=== PATIENT | male | born 1940 | race Caucasian/White ===

== ENCOUNTER → 2017-05-03 | Outpatient (CLI) | payer OTHER ==
[~2017-05-03] MED LIST: ASPEC81 PO; GARLIQUE; MULT-506 PO; OMEG10007 PO; TNRUNK; ZCRUNK; [UNRECOGNIZED DRUG - OTHER]; [UNRECOGNIZED DRUG - OTHER]
[2017-05-03 16:15] LABS: HEMATOCRIT 46.8 % (42-52); MEAN CELL VOLUME 97.3 fL (80-100); MEAN CORPUSCULAR HEMOGLOBIN 33.3 pg (25-34); MEAN CORPUSCULAR HGB CONC 34.2 g/dl (32-36); MEAN PLATELET VOLUME 12.3 fL (7.4-10.4); PLATELET COUNT 201 K/uL (130-400); RED BLOOD COUNT 4.81 M/uL (4.7-6.1); WHITE BLOOD COUNT 6.43 K/uL (4.8-10.8)
[2017-05-03 16:40] LABS: ALT/SGPT 37 U/L (12-78); AST/SGOT 22 U/L (15-37); BLOOD UREA NITROGEN 23 mg/dl (7-18); BUN/CREATININE RATIO 17.9 (10-20); CALCIUM 8.7 mg/dl (8.5-10.1); CARBON DIOXIDE 28 mmol/L (21-32); CHLORIDE 110 mmol/L (98-107); GLUCOSE 111 mg/dl (70-99); POTASSIUM 3.8 mmol/L (3.5-5.1); SODIUM 142 mmol/L (136-145)
[2017-05-03 16:45] LABS: ALB/GLOB RATIO 1.2 (0.9-2); ALKALINE PHOSPHATASE 70 U/L (45-117); CHOLESTEROL 164 mg/dl (0-200); CHOLESTEROL/HDL RATIO 3.6; HDL CHOLESTEROL 45 mg/dl; LDL CHOLESTEROL CALCULATED 85 mg/dl; TRIGLYCERIDES 168 mg/dl (0-150); VERY LOW DENSITY LIPOPROT CALC 34 mg/dl
== END | disposition home or self-care (01) ==
LOC: C.LABBFT 11:35
PROVIDERS: ATTEND Internal Medicine
DX: E78.5 Hyperlipidemia, unspecified (principal); I10 Essential (primary) hypertension; Z12.5 Encounter for screening for malignant neoplasm of prostate

== ENCOUNTER 2017-08-29 10:34 | Day surgery (SDC) | payer OTHER ==
[2017-08-12 14:02] LABS: BASO % 0.3 %; BASO ABS # 0.02 K/uL (0-0.2); COMPLETE YES; EOS % 2.6 %; HEMATOCRIT 45.9 % (42-52); IG% 0.3 %; LYMPH % 16.6 %; LYMPH ABS # 1.02 K/uL (1.2-3.4); MEAN CELL VOLUME 95.8 fL (80-100); MEAN CORPUSCULAR HEMOGLOBIN 32.4 pg (25-34); MEAN CORPUSCULAR HGB CONC 33.8 g/dl (32-36); MEAN PLATELET VOLUME 11.3 fL (7.4-10.4); MONO % 9.3 %; NEUT % 70.9 %; PLATELET COUNT 185 K/uL (130-400); RED BLOOD COUNT 4.79 M/uL (4.7-6.1); WHITE BLOOD COUNT 6.13 K/uL (4.8-10.8)
[2017-08-12 14:07] VITALS: BMI 25.0
--- NOTE | 2017-08-12 14:44 | PAT Medication Instructions ---
Service Date Aug 12, 2017. Current Home Medication List Aspirin (Aspirin Ec), 81 MG PO QAM Atenolol (Tenormin), 50 MG PO HS Cetirizine (Zyrtec), 10 MG PO QAM Fish Oil (Lucerne-3), 1 CAP PO BID Vywishhjbwi-Zbegysokzdj-Orn C- (Glucosamine Chondroitin), 1 TAB PO TID Lisinopril (Zestril), 20 MG PO QAM Magnesium (Elite Magnesium), 200 MG PO PRN Multiple Vitamins W/ Minerals (Vision Formula/Lutein), 1 TAB PO QAM Simvastatin (Zocor), 40 MG PO QPM [Garlique], 1 TAB PO PRN [Neurocet], 420 MG PO QAM [Ultra Brain Boost], 1 TAB PO QAM [Urozinc], 1 TAB PO BID Medication Instructions For Your Scheduled Surgery - Check with surgeon for instructions: Aspirin (Aspirin Ec), 81 MG PO QAM - Hold the following medications 2 weeks prior to surgery: Fish Oil (Lucerne-3), 1 CAP PO BID Gyzsflyjzon-Ygsmlumbcws-Xrd C- (Glucosamine Chondroitin), 1 TAB PO TID [Garlique], 1 TAB PO PRN [Neurocet], 420 MG PO QAM [Ultra Brain Boost], 1 TAB PO QAM - Hold the following medications the morning of surgery: Cetirizine (Zyrtec), 10 MG PO QAM Lisinopril (Zestril), 20 MG PO QAM Magnesium (Elite Magnesium), 200 MG PO PRN Multiple Vitamins W/ Minerals (Vision Formula/Lutein), 1 TAB PO QAM [Urozinc], 1 TAB PO BID - Take the following medications as scheduled the night before surgery: Magnesium (Elite Magnesium), 200 MG PO PRN Atenolol (Tenormin), 50 MG PO HS Simvastatin (Zocor), 40 MG PO QPM If you have any questions please call us at [phone] or [phone] or [phone]
[2017-08-12 14:48] LABS: BUN/CREATININE RATIO 16.9 (10-20); CALCIUM 8.5 mg/dl (8.5-10.1); CREATININE 1.26 mg/dl (0.60-1.40)
--- NOTE | 2017-08-12 15:10 | DIAGNOSTIC IMAGING REPORT ---
CHEST 2 VIEWS ROUTINE CLINICAL HISTORY: Preoperative evaluation. COMPARISON STUDY: Chest radiograph July 11, 2009. FINDINGS: Mild elevation of the right hemidiaphragm has slightly increased since prior exam. There is no pneumothorax or pleural effusion. There is no consolidation. Cardiomediastinal silhouette is normal. Pulmonary vascularity is normal. IMPRESSION: 1. No acute cardiopulmonary findings. 2. Mild elevation of the right hemidiaphragm. Electronically signed by: Ronaldo Machado M.D. 08/12/2017 3:09 PM Dictated Date/Time: 08/12/2017 3:08 PM
[~2017-08-29] VITALS: Ht 167.6 cm; Wt 70.9 kg
[~2017-08-29 10:34] MED LIST changes: -ASPEC81 PO; +ASPI81TA28 PO; +ATEN50TA8 PO; +CETI10TA84 PO; -GARLIQUE; +GARLIQUE PO; +GLUCTAB7 PO; +LACTATED RINGER'S 1000ML 1,000 ML IV SCH; +LISI-725 PO; +MAGN100T PO; -MULT-506 PO; +MULT-839 PO; +NEUROCET PO; +SIMV40TA2 PO; -TNRUNK; +UROZINC PO; -ZCRUNK; -[UNRECOGNIZED DRUG - OTHER]; -[UNRECOGNIZED DRUG - OTHER]; +[UNRECOGNIZED DRUG - OTHER] PO
[2017-08-29 10:54] VITALS: Ht 167.6 cm; Wt 70.9 kg
[2017-08-29 11:07] VITALS: BP 163/81; PULSE 61; TEMP 37.3; O2SAT 96
[2017-08-29] MEDS ORDERED: ONDANSETRON INJ 2 MG/ML 2 ML VIAL ONE (11:45)
[2017-08-29] MEDS ORDERED: ROCURONIUM BROMIDE 10 MG/ML 5 ML VIAL IV ONE (11:45)
[2017-08-29] MEDS ORDERED: PROPOFOL IV EMULSION 10 MG/ML 20 ML VIAL IV ONE (11:45)
[2017-08-29] MEDS ORDERED: DEXAMETHASONE SOD INJ 4 MG/ML VIAL ONE (11:45)
[2017-08-29] MEDS ORDERED: LIDOCAINE HCL 2% 2 ML VIAL (20MG/ML) ONE (11:45)
[2017-08-29] MEDS ORDERED: MIDAZOLAM HCL 1 MG/ML 2ML VIAL ONE (11:46)
[2017-08-29] MEDS ORDERED: FENTANYL CITRATE INJ 50 MCG/1 ML 2 ML VIAL ONE ×2 (11:46)
[2017-08-29] MEDS ORDERED: BACITRACIN 50000 UNIT VIAL ONE (12:21)
[2017-08-29] MEDS ORDERED: BUPIVACAINE 0.5 % 5 MG/1 ML MPF 30ML VIAL ONE (12:21)
--- NOTE | 2017-08-29 12:21 | History & Physical Bridge Note ---
H&P Re-Evaluation Bridge Note: I have examined the patient, reviewed the History & Physical and in the interval since the performance of the History & Physical I have noted the following changes of clinical significance: No changes notedpt marked,son at bedside, all questions answered
[2017-08-29] MEDS ORDERED: OXYC-57 PO (12:24)
--- NOTE | 2017-08-29 12:26 | Discharge Instructions ---
Discharge Instructions Date of Service Aug 29, 2017. Visit Reason for Visit: Umbilical Hernia Discharge Discharge Diagnosis / Problem: hernia repair Discharge Goals Goal(s): Decrease discomfort Activity Recommendations Activity Limitations: as noted below Lifting Limitations: no more than 10 pounds Shower/Bathe: keep incision dry (roemove bandage to shower in two days) Driving or Machine Use: resume 3 days after discharge Anesthesia . Post Anesthesia Instructions: If you have had General Anesthesia or IV Sedation: * Do not drive today. * Resume driving when surgeon permits. * Do not make important decisions or sign legal documents today. * Call surgeon for: 1. Temperature elevations greater than 101 degrees F. 2. Uncontrollable pain. 3. Excessive bleeding. 4. Persistent nausea and vomiting. 5. Medication intolerance (nausea, vomiting or rash). * For nausea and vomiting use only clear liquids such as: tea, soda, bouillon until nausea subsides, then gradually increase diet as tolerated. * If you have any concerns or questions, call your surgeon's office. If physician is unavailable and it is an emergency, call 911 or go to the nearest emergency room. . Instructions / Follow-Up Instructions / Follow-Up Dr. Moreira in 1 week, call [phone] for any questions Diet Recommendations Recommended Home Diet: no limitations Pending Studies Studies pending at discharge: no Medical Emergencies . Who to Call and When: Medical Emergencies: If at any time you feel your situation is an emergency, please call 911 immediately. . Non-Emergent Contact Non-Emergency issues call your: Surgeon Call Non-Emergent contact if: you have a fever, temperature is above 101.5, your pain is not controlled, wound has increased redness, you have any medication questions . . "Provider Documentation" section prepared by Bj Elizabeth. . [place] Drug Monitoring Program Search Results: no issues identified
[2017-08-29] MEDS ORDERED: CEFAZOLIN SOD 1 GM VIAL ONE (12:44)
[2017-08-29] MEDS ORDERED: PHENYLEPHRINE 100MCG/ML 5ML SYR ONE (12:48)
[2017-08-29] MEDS ORDERED: EpHEDrine SULFATE 50MG/5ML SYR ONE (12:48)
--- NOTE | 2017-08-29 13:16 | [facility] Operative Report ---
Operative Report Operative Date Aug 29, 2017. Pre-Operative Diagnosis Umbilical Hernia Post-Operative Diagnosis Umbilical Hernia Procedure(s) Performed Open Incarcerated Umbilical Hernia Repair with Marlex Mesh Plug and Patch Surgeon Dr. Moreira Mortar Worker Surgeon(s) LANI Arellano Estimated Blood Loss 3 ml Findings incarcerated fat defect marvin 1.5 cm dx Specimens none per surgeon Description of Procedure OR summary dictated confirmation number [id number] I attest to the content of the Intraoperative Record and any orders documented therein. Any exceptions are noted below.
[2017-08-29] MEDS ORDERED: LACTATED RINGER'S 1000ML 1,000 ML IV SCH (13:20)
[2017-08-29] MEDS ORDERED: MoRPHine SULFATE 2 MG/ML CARP IV PRN (13:30)
[2017-08-29] MEDS ORDERED: OXYCODONE/ACETAMINOPHEN 5-325 TAB PO PRN (13:30)
[2017-08-29] MEDS ORDERED: ONDANSETRON INJ 2 MG/ML 2 ML VIAL IV PRN ×2 (13:30→13:45)
[2017-08-29] MEDS ORDERED: ATROPINE SULFATE 0.1 MG/ML 5ML SYR IV PRN (13:45)
[2017-08-29] MEDS ORDERED: EpHEDrine SULFATE INJ 50 MG/ML AMP IV PRN (13:45)
[2017-08-29] MEDS ORDERED: FLUMAZENIL 0.1 MG/1 ML 10 ML VIAL IV PRN (13:45)
[2017-08-29] MEDS ORDERED: LABETALOL HCL IV 5 MG/ML 20ML IV PRN (13:45)
[2017-08-29] MEDS ORDERED: NALOXONE HCL 0.4 MG/1 ML VIAL/CARP IV PRN (13:45)
[2017-08-29] MEDS ORDERED: FENTANYL CITRATE INJ 50 MCG/1 ML 2 ML VIAL IV PRN (13:45)
--- NOTE | 2017-08-29 14:01 | Anesthesiology Progress Note ---
Anesthesia Post Op Note Date & Time Aug 29, 2017 at 14:01 Vital Signs Pain Intensity: 0 Vital Signs Past 12 Hours Date Time Temp Pulse Resp B/P (MAP) Pulse Ox O2 Delivery O2 Flow Rate FiO2 08/29/17 13:50 140/77 08/29/17 13:47 62 11 99 08/29/17 13:47 61 11 08/29/17 13:45 150/75 08/29/17 13:42 54 15 98 08/29/17 13:42 54 15 08/29/17 13:41 55 16 08/29/17 13:41 53 16 99 08/29/17 13:40 131/72 08/29/17 13:36 59 10 99 08/29/17 13:36 58 10 08/29/17 13:35 137/70 08/29/17 13:31 52 13 98 08/29/17 13:31 52 13 08/29/17 13:30 125/66 08/29/17 13:26 52 14 08/29/17 13:26 36.9 55 16 135/66 (86) 99 Oxymask 10 08/29/17 13:26 53 14 135/66 98 08/29/17 11:07 37.3 61 16 163/81 (108) 96 Room Air Notes Mental Status: alert / awake / arousable, participated in evaluation Pt Amnestic to Procedure: Yes Nausea / Vomiting: adequately controlled Pain: adequately controlled Airway Patency, RR, SpO2: stable & adequate BP & HR: stable & adequate Hydration State: stable & adequate Anesthetic Complications: no major complications apparent
[2017-08-29 14:13] VITALS: BP 159/82; PULSE 65; TEMP 36.4; O2SAT 95
--- NOTE | 2017-08-29 14:40 | OPERATIVE REPORT ---
DATE OF OPERATION: 08/29/2017 PREOPERATIVE DIAGNOSIS: Incarcerated umbilical hernia. POSTOPERATIVE DIAGNOSIS: Same. PROCEDURE: Repair of incarcerated umbilical hernia open with Marlex mesh patch and plug. SURGEON: Dr. Moreira. SPEED OPERATOR: Anjel Elizabeth PA-C. OPERATION AND FINDINGS: SUMMARY: The patient was brought into the operating room theater. The abdomen was prepped with Betadine solution and scrub and properly draped. We used Marcaine 0.5% and infiltrated from 3 to 9 o'clock position inferior to the umbilical area. The patient had incarcerated tissue right at the umbilical opening. An incision was made, a smiley type and deepened through subcutaneous tissue. We at this point dissected out mostly by sharp dissection, got into the hernial sac and we were able then to free that from the umbilical tissue and circumferentially around the body fascia where the defect appeared to be about 1.5 cm. We freed it from the undersurface of the fascia circumferentially in the umbilical area. At this point, I elected to bring a sheet of Marlex mesh, we made 2 circular rings, 1 extending approximately 3-4 cm in diameter, the other one about 2 cm in diameter. We sutured the smaller one to the larger one and we used that as a plug. We inserted inside the abdomen preperitoneally. We then sutured that onto the larger ring, at least 4 stitches of 2-0 Prolene. We took bites of the fascia onto both pieces of Marlex. Once this had been performed, then the overlapping larger ring was oversewn circumferentially on the fascia with a running 2-0 Prolene suture approximately 1 cm or so beyond the initial opening. Subcutaneous tissue was then checked for hemostasis and appeared satisfactory. More local was used. We then used the 2-0 Dexon to approximate the subcutaneous tissue. The umbilical tissue was sutured onto the Marlex mesh. Certainly the flap was quite viable. These were all done with interrupted sutures then used some Monocryl, Steri-Strips applied. A piece of dental roll placed centrally. The procedure was tolerated well by the patient. Estimated blood loss approximately 3 mL. The patient was taken to recovery room in good condition. I attest to the content of the Intraoperative Record and any orders documented therein. Any exceptions are noted below. [facility]
[2017-08-29 14:43] VITALS: BP 176/82; PULSE 60; TEMP 36.4; O2SAT 95
== END 2017-08-29 15:15 | disposition home or self-care (01) ==
LOC: C.ACU 10:34
PROVIDERS: ATTEND Surgery
DX: K42.0 Umbilical hernia with obstruction, without gangrene (principal); I10 Essential (primary) hypertension; K21.9 Gastro-esophageal reflux disease without esophagitis; N40.0 Benign prostatic hyperplasia without lower urinary tract symptoms; E78.5 Hyperlipidemia, unspecified; Z79.82 Long term (current) use of aspirin; Z83.3 Family history of diabetes mellitus; Z82.49 Family history of ischemic heart disease and other diseases of the circulatory system

== ENCOUNTER → 2018-01-16 | Outpatient (CLI) | payer OTHER ==
[~2018-01-16] MED LIST changes: -LACTATED RINGER'S 1000ML 1,000 ML IV SCH; +OXYC-57 PO
== END | disposition home or self-care (01) ==
LOC: C.LABBFT 15:38
PROVIDERS: ATTEND Internal Medicine
DX: R39.9 Unspecified symptoms and signs involving the genitourinary system (principal)

== ENCOUNTER → 2018-01-29 | Outpatient (CLI) | payer OTHER | END | disposition home or self-care (01) | LOC: C.LABBFT 14:25 | PROVIDERS: ATTEND Internal Medicine | DX: R39.9 Unspecified symptoms and signs involving the genitourinary system (principal) ==

== ENCOUNTER → 2018-05-13 | Outpatient (CLI) | payer OTHER ==
[~2018-05-13] MED LIST changes: -OXYC-57 PO
[2018-05-13 17:27] LABS: BASO % 0.3 %; BASO ABS # 0.02 K/uL (0-0.2); EOS % 4.3 %; EOS ABS # 0.25 K/uL (0-0.5); HEMATOCRIT 46.3 % (42-52); HEMOGLOBIN 15.9 g/dL (14.0-18.0); IG# 0.02 K/uL (0.00-0.02); LYMPH % 18.4 %; LYMPH ABS # 1.07 K/uL (1.2-3.4); MEAN CELL VOLUME 95.9 fL (80-100); MEAN CORPUSCULAR HEMOGLOBIN 32.9 pg (25-34); MEAN CORPUSCULAR HGB CONC 34.3 g/dl (32-36); MONO % 9.1 %; MONO ABS # 0.53 K/uL (0.11-0.59); NEUT % 67.6 %; NEUT ABS # 3.91 K/uL (1.4-6.5); PLATELET COUNT 214 K/uL (130-400); RED CELL DISTRIBUTION WIDTH SD 45.5 fL (36.4-46.3)
[2018-05-13 17:42] LABS: ALBUMIN 3.5 gm/dl (3.4-5.0); ALKALINE PHOSPHATASE 69 U/L (45-117); ALT/SGPT 33 U/L (12-78); AST/SGOT 20 U/L (15-37); BLOOD UREA NITROGEN 25 mg/dl (7-18); CALCIUM 8.7 mg/dl (8.5-10.1); CARBON DIOXIDE 29 mmol/L (21-32); CHOLESTEROL 153 mg/dl (0-200); CREATININE 1.29 mg/dl (0.60-1.40); GLUCOSE 91 mg/dl (70-99); LDL CHOLESTEROL CALCULATED 85 mg/dl; POTASSIUM 4.8 mmol/L (3.5-5.1); SODIUM 141 mmol/L (136-145); TOTAL PROTEIN 6.4 gm/dl (6.4-8.2)
[2018-05-14 06:03] LABS: HEMOGLOBIN A1C 5.7 % (4.5-5.6)
== END | disposition home or self-care (01) ==
LOC: C.LABBFT 14:43
PROVIDERS: ATTEND Internal Medicine
DX: Z12.5 Encounter for screening for malignant neoplasm of prostate (principal); E78.5 Hyperlipidemia, unspecified; I10 Essential (primary) hypertension; R73.9 Hyperglycemia, unspecified